=== PATIENT | male | born 1955 | race Caucasian/White ===

== ENCOUNTER 2017-06-04 13:07 | Observation (INO) | payer OTHER ==
--- NOTE | 2017-06-04 13:53 | XRAY ---
Indication: Dyspnea and bloating. CHF. COPD. Comparison: June 12, 2011. PA/lateral chest remains clear with again incidental minimal lingular fibrosis/scarring. No focal infiltrate, consolidation, or large effusion. Heart is not enlarged. Vascularity normal. Bony thorax intact again with degenerative changes. Impression: Stable nonacute chest with chronic features.
[2017-06-04 14:01] LABS: Hematocrit 42.3 % (42-50); Hemoglobin 14.5 gm/dl (12.5-18.0); Mean Cell Volume 95.5 fl (78-100); Mean Corpuscular Hemoglobin 32.7 pg (26-32); Mean Corpuscular Hgb Concent. 34.3 g/dl (32-36); Mean Platelet Volume 9.1 fl (6-9.5); Platelet Count 131 K/mm3 (150-450); Red Blood Count 4.43 M/mm3 (4.1-5.6); Red Cell Distribution Width 12.8 % (11.5-14.0); White Blood Count 5.3 K/mm3 (4.0-10.5)
[2017-06-04] MEDS: PROVENTIL COMMON CANISTER IH SCH ×2 (14:13→18:52)
[2017-06-04 14:27] LABS: ANION GAP 15.1 MEQ/L (5-15); BLOOD UREA NITROGEN 7 mg/dL (9-20); CHLORIDE 95 mEq/L (98-107); Calcium 8.9 mg/dL (8.5-10.1); Carbon Dioxide 25.7 mEq/L (21-32); Creatinine 1 0.67 mg/dl (0.55-1.30); EST GLOMERULAR FILTRATION RATE > 60 ML/MIN; Glucose 112 MG/DL (70-110); NT PRO BNP 1009 pg/ml (0-125); Potassium 3.7 mEq/L (3.5-5.1); SODIUM 132 mEq/L (136-145)
[2017-06-04 14:28] LABS: TROPONIN < 0.017 ng/ml (0.000-0.056)
[2017-06-04] MEDS ORDERED: MEDICATION INTERVENTION MC PRN (16:59)
[2017-06-04] MEDS: Lasix 40 MG/4 ML IV SCH (17:30)
[2017-06-04] MEDS: SOMA 350 MG PO SCH ×2 (17:31→22:16)
[2017-06-04] MEDS: FISH OIL 1,000 MG CAPSULE PO SCH (17:31)
[2017-06-04] MEDS: ENOXAPARIN SODIUM SQ SCH (17:32)
[2017-06-04] MEDS: PLAVIX 75 MG Tablet PO SCH (17:32)
[2017-06-04] MEDS: PATIENT OWN MEDICATION IH SCH ×2 (18:59→22:18)
[2017-06-04] MEDS ORDERED: NON-FORMULARY ITEM (Carvedilol [Coreg] 25 MG) PO SCH (22:00)
[2017-06-04] MEDS ORDERED: xanAX 0.5 MG PO SCH (22:00)
[2017-06-04] MEDS: Glucophage XR 500 MG PO SCH (22:15)
[2017-06-04] MEDS: XANAX 1 MG PO SCH (22:15)
[2017-06-04] MEDS: COREG 12.5 MG PO SCH (22:16)
[2017-06-04] MEDS: Reglan 10 MG PO SCH (22:16)
[2017-06-04] MEDS ORDERED: PROVENTIL COMMON CANISTER IH PRN (23:08)
[2017-06-05] MEDS: SOMA 350 MG PO SCH ×4 (05:43→21:48)
[2017-06-05] MEDS: PROVENTIL COMMON CANISTER IH SCH ×4 (07:23→20:03)
[2017-06-05] MEDS: XANAX 1 MG PO SCH ×2 (08:46→21:49)
[2017-06-05] MEDS: Lasix 40 MG/4 ML IV SCH ×2 (08:46→16:50)
[2017-06-05] MEDS: Zestril 20 MG PO SCH (08:47)
[2017-06-05] MEDS: Reglan 10 MG PO SCH ×2 (08:47→21:48)
[2017-06-05] MEDS: Glucophage XR 500 MG PO SCH ×3 (08:47→21:48)
[2017-06-05] MEDS: NORVASC 5 MG PO SCH (08:47)
[2017-06-05] MEDS: COREG 12.5 MG PO SCH ×2 (08:47→21:48)
[2017-06-05] MEDS ORDERED: NON-FORMULARY ITEM (Lisinopril [Lisinopril] 40 MG) PO SCH (10:00)
[2017-06-05] MEDS ORDERED: NON-FORMULARY ITEM (Omeprazole [Omeprazole] 40 MG) PO SCH ×2 (10:00)
[2017-06-05] MEDS: Protonix 40MG Tablet PO SCH (10:30)
--- NOTE | 2017-06-05 12:57 | PCM.NOTE ---
Date and Time: 06/05/17 1255 Subjective Assessment: doing ok - Review of Systems Constitutional: No Fever, No Chills Eyes: No Symptoms Ears, Nose, & Throat: No Symptoms Respiratory: Orthopnea, No Cough, No Short Of Breath Cardiac: No Chest Pain, No Edema, No Syncope Abdominal/Gastrointestinal: No Abdominal Pain, No Nausea, No Vomiting, No Diarrhea Genitourinary Symptoms: No Dysuria Musculoskeletal: No Back Pain, No Neck Pain Skin: No Rash Neurological: No Dizziness, No Focal Weakness, No Sensory Changes Psychological: No Symptoms Endocrine: No Symptoms Hematologic/Lymphatic: No Symptoms Immunological/Allergic: No Symptoms Objective Exam General Appearance: no apparent distress, alert Neurologic Exam: alert, oriented x 3, cooperative, normal mood/affect, nml cerebellar function, sensation nml, No motor deficits Skin Exam: normal color, warm, dry Eye Exam: PERRL, EOMI, eyes nml inspection Ears, Nose, Throat Exam: normal ENT inspection, pharynx normal, moist mucous membranes Neck Exam: normal inspection, non-tender, supple, full range of motion Respiratory Exam: normal breath sounds, lungs clear, No respiratory distress Cardiovascular Exam: regular rate/rhythm, normal heart sounds Gastrointestinal/Abdomen Exam: soft, No tenderness, No mass Extremity Exam: normal inspection, normal range of motion Back Exam: normal inspection, normal range of motion, No CVA tenderness, No vertebral tenderness Male Genitalia Exam: deferred Rectal Exam: deferred OBJECTIVE DATA Vital Signs: Vital Signs - 24 hr Temp Pulse Resp BP Pulse Ox 06/05/17 11:33 97.9 F 69 18 118/67 93 L 06/05/17 07:34 76 18 94 L 06/05/17 07:08 98.3 F 74 20 132/78 94 L 06/05/17 04:00 98.0 F 69 20 123/78 92 L 06/05/17 00:05 98.3 F 82 24 127/72 95 06/04/17 23:15 78 20 95 06/04/17 21:00 97.8 F 76 18 119/75 88 L 06/04/17 18:59 78 22 95 06/04/17 16:51 97.5 F 75 24 120/68 94 L 06/04/17 15:00 97.5 F 77 24 116/74 87 L 06/04/17 14:24 94 L 06/04/17 14:17 74 22 90 L Oxygen-Last 24 hours O2 Percentage 3 Liters = 32% O2 Percentage 3 Liters = 32% O2 Percentage 3 Liters = 32% O2 Percentage 3 Liters = 32% O2 Percentage 2 Liters = 28% Pain Assessment - Last Documented Pain Intensity 0 Pain Scale Used 0-10 Pain Scale Intake and Output: Intake & Output 06/03/17 06/04/17 06/05/17 06/06/17 11:59 11:59 11:59 11:59 Intake Total 1760 Output Total 5210 Balance -3450 Weight 95.65 kg Lab Results: Accuchecks Date 06/05/17 Date 06/05/17 Date 06/04/17 Time 11:30 Time 07:30 Time 22:00 Accucheck Value: 147 Accucheck Value: 128 Accucheck Value: 110 Lab Results-Last 24 Hours 06/04/17 06/04/17 06/05/17 Range/Units 12:50 12:50 01:00 WBC 5.3 (4.0-10.5) K/mm3 RBC 4.43 (4.1-5.6) M/mm3 Hgb 14.5 (12.5-18.0) gm/dl Hct 42.3 (42-50) % MCV 95.5 (78-100) fl MCH 32.7 H (26-32) pg MCHC 34.3 (32-36) g/dl RDW 12.8 (11.5-14.0) % Plt Count 131 L (150-450) K/mm3 MPV 9.1 (6-9.5) fl Sodium 132 L (136-145) mEq/L Potassium 3.7 (3.5-5.1) mEq/L Chloride 95 L (98-107) mEq/L Carbon Dioxide 25.7 (21-32) mEq/L Anion Gap 15.1 H (5-15) MEQ/L BUN 7 L (9-20) mg/dL Creatinine 0.67 (0.55-1.30) mg/dl Estimated GFR > 60 ML/MIN Glucose 112 H (70-110) MG/DL Hemoglobin A1c 5.9 (4.5-6.2) Calcium 8.9 (8.5-10.1) mg/dL Troponin I < 0.017 (0.000-0.056) ng/ml NT-Pro-B Natriuret Pep 1009 H (0-125) pg/ml Radiology Exams: Radiology Procedures Category Date Time Status CHEST 2 VIEWS (PA AND LAT) Stat Exams 06/04/17 13:17 Completed ECHO W/2D AND DOPPLER [US] Routine Exams 06/05/17 08:00 Taken Multi-Disciplinary Progress Notes: Multi-Disciplinary Progress Notes 06/05/17 02:35 Respiratory Note by Prateek Cazares DUE TO PT NEED FOR O2 ALONG W/ HIS CPAP I DID NOT DO HIS OVERNIGHT PULSE OX STUDY LAST NIGHT. Initialized on 06/05/17 02:35 - END OF NOTE 06/04/17 21:40 Respiratory Note by Prateek Cazares CALLED TO PT RM BY COMPRESSOR STATIONS SUPERINTENDENT PT STATED HE WAS FEELING SOB. WHEN I ARRIVED PT SATS WERE 94% ON 3LPM, HR 78, RR 20 AND BS WERE CLEAR AND DIMINISHED. PT WAS SITTING ON THE SIDE OF THE BED AND BREATHING APPEARED NORMAL. PT STATED THAT HE HAS SLOWLY STARTED HAVING MORE DIFFICULTY BREATHING SINCE THE LAST TIME I HAD SEEN HIM THIS EVENING. PT SHOWED ME THAT HE HAD BEEN COUGHING UP A SMALL AMOUNT OF YELLOW/CLEAR, WATERY, SPUTUM. I PLACED PT HOB AT 30 DEGREES AND PLACED PT OWNED CPAP ON HIM AND HE WAS DE-SATTING LOW 88%. I BLED 3LPM OF O2 IN WITH HIS CPAP AND SATS CAME UP TO 96%. I LEFT PT ON THAT AND HE KNOWS TO CALL FOR RT IF HE CONTINUES TO HAVE TROUBLE. Initialized on 06/04/17 21:40 - END OF NOTE Assessment/Plan (1) Acute diastolic CHF (congestive heart failure), NYHA class 3 Current Visit: Yes Status: Acute Assessment & Plan: Chief Complaint Diagnosis CHF Allergies Allergy/AdvReac Type Severity Reaction Status Date / Time No Known Drug Allergies Allergy Unverified 01/07/12 07:22 Vital Signs (Last 24 hours) Temp Pulse Resp BP Pulse Ox 06/05/17 11:33 97.9 F 69 18 118/67 93 L 06/05/17 07:34 76 18 94 L 06/05/17 07:08 98.3 F 74 20 132/78 94 L 06/05/17 04:00 98.0 F 69 20 123/78 92 L 06/05/17 00:05 98.3 F 82 24 127/72 95 06/04/17 23:15 78 20 95 06/04/17 21:00 97.8 F 76 18 119/75 88 L 06/04/17 18:59 78 22 95 06/04/17 16:51 97.5 F 75 24 120/68 94 L 06/04/17 15:00 97.5 F 77 24 116/74 87 L 06/04/17 14:24 94 L 06/04/17 14:17 74 22 90 L Home Medications Medication Instructions Recorded Confirmed Last Taken Type Alirocumab [Praluent Pen] 150 mg SQ UD 06/04/17 06/04/17 Unknown History Amlodipine Besylate 5 mg 5 mg PO DAILY 06/04/17 06/04/17 06/04/17 History [Norvasc 5 mg] Beclomethasone Dipropionate [Qvar] 80 mcg IH DAILY 06/04/17 06/04/17 06/04/17 History Carvedilol [Coreg] 25 mg PO BID 06/04/17 06/04/17 06/04/17 History Furosemide 40 mg [Lasix 40 40 mg PO DAILY 06/04/17 06/04/17 06/04/17 History MG] Liraglutide [Victoza 2-Maksim] 1.8 mg SQ DAILY 06/04/17 06/04/17 06/04/17 History Lisinopril 40 mg PO DAILY 06/04/17 06/04/17 06/04/17 History Sims-3 Fatty Acids/Fish Oil 1,000 mg PO DAILY 06/04/17 06/04/17 06/03/17 History [Fish Oil 1,000 mg Capsule] Current Medications Generic Name Dose Route Start Last Admin Trade Name Freq PRN Reason Stop Dose Admin Albuterol Sulfate 2 puff 06/04/17 15:00 06/05/17 11:28 Proventil Common Canister IH 07/04/17 14:59 2 puff QIDRT SALEEM Administration Albuterol Sulfate 2 puff 06/04/17 23:08 06/04/17 23:15 Proventil Common Canister IH 07/04/17 23:07 2 puff PRN PRN Administration SHORTNESS OF BREATH Alprazolam 1 mg 06/04/17 22:00 06/05/17 08:46 Xanax 1 Mg PO 07/04/17 21:59 1 mg BID SALEEM Administration Amlodipine Besylate 5 mg 06/05/17 10:00 06/05/17 08:47 Norvasc 5 Mg PO 07/05/17 09:59 5 mg DAILY SALEEM Administration Carisoprodol 350 mg 06/04/17 17:00 06/05/17 05:43 Soma 350 Mg PO 07/04/17 16:59 350 mg QID SALEEM Administration Carvedilol 12.5 mg 06/04/17 22:00 06/05/17 08:47 Coreg 12.5 Mg PO 07/04/17 21:59 12.5 mg BID SALEEM Administration Clopidogrel Bisulfate 75 mg 06/04/17 18:00 06/04/17 17:32 Plavix 75 Mg Tablet PO 07/04/17 17:59 75 mg EVENING MEAL SALEEM Administration Enoxaparin Sodium 40 mg 06/04/17 18:00 06/04/17 17:32 Enoxaparin Sodium SQ 07/04/17 17:59 40 mg Q24H SALEEM Administration Fish Oil 1,000 mg 06/04/17 18:00 06/04/17 17:31 Fish Oil 1,000 Mg Capsule PO 07/04/17 17:59 1,000 mg EVENING MEAL SALEEM Administration Furosemide 40 mg 06/04/17 17:00 06/05/17 08:46 Lasix 40 Mg/4 Ml IV 07/04/17 16:59 40 mg BID DIURETIC SALEEM Administration Lisinopril 40 mg 06/05/17 10:00 06/05/17 08:47 Zestril 20 Mg PO 07/05/17 09:59 40 mg DAILY SALEEM Administration Metformin HCl 500 mg 06/04/17 22:00 06/05/17 08:47 Glucophage Xr 500 Mg PO 07/04/17 21:59 500 mg TID SALEEM Administration Metoclopramide HCl 10 mg 06/04/17 22:00 06/05/17 08:47 Reglan 10 Mg PO 07/04/17 21:59 10 mg BID SALEEM Administration Pantoprazole Sodium 40 mg 06/05/17 10:00 06/05/17 10:30 Protonix 40mg Tablet PO 07/05/17 09:59 40 mg DAILY SALEEM Administration Patient Own Med : 0 each 06/04/17 19:00 06/04/17 22:18 Qvar IH 07/04/17 18:59 2 each HS SALEEM Administration Discontinued Medications Generic Name Dose Route Start Last Admin Trade Name Shlomo PRN Reason Stop Dose Admin Non-Formulary Medication 40 mg 06/05/17 10:00 Omeprazole [Omeprazole] PO 07/05/17 09:59 DAILY SALEEM Intake & Output (Last 24 hours) 06/03/17 06/04/17 06/05/17 06/06/17 11:59 11:59 11:59 11:59 Intake Total 1760 360 Output Total 5210 550 Balance -3450 -190 Weight 95.65 kg Laboratory Results (Last 24 hours) 06/05/17 06/04/17 06/04/17 01:00 12:50 12:50 WBC 5.3 RBC 4.43 Hgb 14.5 Hct 42.3 MCV 95.5 MCH 32.7 H MCHC 34.3 RDW 12.8 Plt Count 131 L MPV 9.1 Sodium 132 L Potassium 3.7 Chloride 95 L Carbon Dioxide 25.7 Anion Gap 15.1 H BUN 7 L Creatinine 0.67 Estimated GFR > 60 Glucose 112 H Hemoglobin A1c 5.9 Calcium 8.9 Troponin I < 0.017 NT-Pro-B Natriuret Pep 1009 H Orders (Last 24 hours) Category Date Time Status Up Ad Flores TOLERATED Activity 06/04/17 13:15 Active ACCUCHECK [Accucheck] ACHS Care 06/04/17 19:06 Active Admission/Status Order ROUTINE Care 06/04/17 13:07 Inactive Admission/Status Order ROUTINE Care 06/04/17 13:15 Active Code Status Order ROUTINE Care 06/04/17 13:15 Active IV Care Q6H Care 06/04/17 13:15 Active IV Care Q6H Care 06/04/17 16:09 Active Implement CHF Pathway ROUTINE Care 06/04/17 13:15 Active Implement CHF Pathway ROUTINE Care 06/04/17 16:09 Active Intake and Output Q12H Care 06/04/17 13:15 Active Saline Lock ROUTINE Care 06/04/17 13:15 Active Saline Lock ROUTINE Care 06/04/17 16:09 Active Telemetry CONTINUOUS Care 06/04/17 13:16 Active Telemetry CONTINUOUS Care 06/04/17 16:11 Active Vital Signs Q4H Care 06/04/17 13:15 Active Weight,Daily 0600 Care 06/04/17 13:15 Active Weight,Daily 0600 Care 06/04/17 16:09 Completed Label Folder/Discharge Plan Cons 06/04/17 15:21 Active Low Sodium Diet 06/04/17 Dinner Active Nutritional Admission Screen once Diet 06/04/17 16:25 Active Nutritional Consult Diet 06/04/17 13:15 Active Nutritional Consult Diet 06/04/17 16:09 Active CHEST 2 VIEWS (PA AND LAT) Stat Exams 06/04/17 13:17 Completed ECHO W/2D AND DOPPLER [US] Routine Exams 06/05/17 08:00 Taken BMP Stat Lab 06/04/17 12:50 Completed CBC Stat Lab 06/04/17 12:50 Completed HEMOGLOBIN A1C Routine Lab 06/05/17 01:00 Completed NT PRO BNP Stat Lab 06/04/17 12:50 Completed TROPONIN Stat Lab 06/04/17 12:50 Completed Albuterol Common Canister [Proventil Common Canister Med 06/04/17 23:08 Active ] 2 puff IH PRN PRN Albuterol Common Canister [Proventil Common Canister Med 06/04/17 15:00 Active ] 2 puff IH QIDRT Alprazolam 1 mg [Xanax 1 mg] Med 06/04/17 22:00 Active 1 mg PO BID Amlodipine Besylate 5 mg [Norvasc 5 mg] Med 06/05/17 10:00 Active 5 mg PO DAILY Carisoprodol 350 mg [Soma 350 mg] Med 06/04/17 17:00 Active 350 mg PO QID Carvedilol 12.5 mg [Coreg 12.5 mg] Med 06/04/17 22:00 Active 12.5 mg PO BID Clopidogrel Bisulfate 75 mg [PLAVIX 75 MG Tablet] Med 06/04/17 18:00 Active 75 mg PO EVENING MEAL Enoxaparin Sodium [Enoxaparin Sodium] Med 06/04/17 18:00 Active 40 mg SQ Q24H Furosemide 40 mg/4 ml [Lasix 40 MG/4 ML] Med 06/04/17 17:00 Active 40 mg IV BID DIURETIC Lisinopril 20 mg [Zestril 20 MG] Med 06/05/17 10:00 Active 40 mg PO DAILY Medication Intervention Med 06/04/17 16:59 Active 0 each MC PRN PRN Metformin HCl Xr 500 mg [Glucophage XR 500 MG] Med 06/04/17 22:00 Active 500 mg PO TID Metoclopramide HCl 10 mg [Reglan 10 MG] Med 06/04/17 22:00 Active 10 mg PO BID Sims-3 Fatty Acids/Fish Oil [Fish Oil 1,000 mg Med 06/04/17 18:00 Active Capsule] 1,000 mg PO EVENING MEAL Omeprazole [Omeprazole] Med 06/05/17 10:00 Discontinued 40 mg PO DAILY PANTOPRAZOLE 40 mg Tablet [Protonix 40MG Tablet] Med 06/05/17 10:00 Active 40 mg PO DAILY Patient Own Med [Patient Own Medication] Med 06/04/17 19:00 Active 0 each IH HS BiPap/CPAP Assessment ROUTINE RT 06/04/17 21:00 Active EKG STAT RT 06/04/17 13:15 Completed Oxygen NASAL CANNULA 2 lpm RT 06/04/17 13:15 Active Pulse Oximetry OVERNIGHT RT 06/04/17 16:09 Active RT Screen per Nursing Assess ONCE RT 06/04/17 16:25 Completed Respiratory MDI HS RT 06/04/17 19:00 Active Respiratory MDI QID RT 06/04/17 15:00 Active Respiratory MDI UD RT 06/04/17 23:08 Active Patient Care Notes (Last 24 hours) 06/05/17 02:35 Respiratory Note by Prateek Cazares DUE TO PT NEED FOR O2 ALONG W/ HIS CPAP I DID NOT DO HIS OVERNIGHT PULSE OX STUDY LAST NIGHT. Initialized on 06/05/17 02:35 - END OF NOTE 06/04/17 21:40 Respiratory Note by Prateek Cazares CALLED TO PT RM BY COMPRESSOR STATIONS SUPERINTENDENT PT STATED HE WAS FEELING SOB. WHEN I ARRIVED PT SATS WERE 94% ON 3LPM, HR 78, RR 20 AND BS WERE CLEAR AND DIMINISHED. PT WAS SITTING ON THE SIDE OF THE BED AND BREATHING APPEARED NORMAL. PT STATED THAT HE HAS SLOWLY STARTED HAVING MORE DIFFICULTY BREATHING SINCE THE LAST TIME I HAD SEEN HIM THIS EVENING. PT SHOWED ME THAT HE HAD BEEN COUGHING UP A SMALL AMOUNT OF YELLOW/CLEAR, WATERY, SPUTUM. I PLACED PT HOB AT 30 DEGREES AND PLACED PT OWNED CPAP ON HIM AND HE WAS DE-SATTING LOW 88%. I BLED 3LPM OF O2 IN WITH HIS CPAP AND SATS CAME UP TO 96%. I LEFT PT ON THAT AND HE KNOWS TO CALL FOR RT IF HE CONTINUES TO HAVE TROUBLE. Initialized on 06/04/17 21:40 - END OF NOTE Code(s): I50.31 - ACUTE DIASTOLIC (CONGESTIVE) HEART FAILURE (2) Heart failure Current Visit: Yes Status: Acute Qualifiers: Heart failure type: combined Heart failure chronicity: acute on chronic Qualified Code(s): I50.43 - Acute on chronic combined systolic (congestive) and diastolic (congestive) heart failure Code(s): I50.9 - HEART FAILURE, UNSPECIFIED
[2017-06-05] MEDS: ENOXAPARIN SODIUM SQ SCH (18:22)
[2017-06-05] MEDS: PLAVIX 75 MG Tablet PO SCH (18:22)
[2017-06-05] MEDS: FISH OIL 1,000 MG CAPSULE PO SCH (18:22)
[2017-06-05] MEDS: PATIENT OWN MEDICATION IH SCH (21:49)
[2017-06-06 06:35] LABS: ALBUMIN 3.8 g/dL (3.4-5.0); ALKALINE PHOSPHATASE 75 U/L (46-116); ANION GAP 13.3 MEQ/L (5-15); BLOOD UREA NITROGEN 7 mg/dL (9-20); CHLORIDE 98 mEq/L (98-107); Calcium 9.7 mg/dL (8.5-10.1); Carbon Dioxide 28.3 mEq/L (21-32); Creatinine 1 0.76 mg/dl (0.55-1.30); EST GLOMERULAR FILTRATION RATE > 60 ML/MIN; Glucose 117 MG/DL (70-110); PHOSPHOROUS 4.7 mg/dL (2.6-4.7); SGOT/AST 16 U/L (15-37); SGPT/ALT 25 U/L (12-78); SODIUM 136 mEq/L (136-145); Total Protein 7.9 gm/dL (6.4-8.2)
[2017-06-06] MEDS: PROVENTIL COMMON CANISTER IH SCH ×2 (07:27→11:06)
[2017-06-06] MEDS: Zestril 20 MG PO SCH (08:41)
[2017-06-06] MEDS: Reglan 10 MG PO SCH (08:41)
[2017-06-06] MEDS: COREG 12.5 MG PO SCH (08:41)
[2017-06-06] MEDS: SOMA 350 MG PO SCH ×2 (08:42→13:00)
[2017-06-06] MEDS: XANAX 1 MG PO SCH (08:42)
[2017-06-06] MEDS: NORVASC 5 MG PO SCH (08:42)
[2017-06-06] MEDS: Protonix 40MG Tablet PO SCH (08:42)
[2017-06-06] MEDS: Lasix 40 MG/4 ML IV SCH (08:43)
[2017-06-06] MEDS: Glucophage XR 500 MG PO SCH (08:43)
--- NOTE | 2017-06-06 09:57 | PCM.DS ---
Discharge Summary Date of Admission: 06/04/17 13:07 Admitting Physician: HODA HAIRSTON Consults: Consults on Case 06/04/17 13:15 Nutritional Consult 06/04/17 16:09 Nutritional Consult Primary Care Provider: HODA HAIRSTON Allergies Allergies No Known Drug Allergies Allergy (Unverified 01/07/12 07:22) Hospital Summary - Hospital Course Hospital Course: Chief Complaint Diagnosis CHF Allergies Allergy/AdvReac Type Severity Reaction Status Date / Time No Known Drug Allergies Allergy Unverified 01/07/12 07:22 Vital Signs (Last 24 hours) Temp Pulse Resp BP Pulse Ox 06/06/17 07:34 81 20 97 06/06/17 07:29 97.8 F 79 20 159/83 96 06/06/17 04:00 97.8 F 77 20 150/84 97 06/05/17 23:44 97.6 F 70 20 111/64 94 L 06/05/17 20:24 97.7 F 71 22 146/77 95 06/05/17 19:10 72 18 96 06/05/17 16:10 98 F 77 20 134/76 94 L 06/05/17 11:33 97.9 F 69 18 118/67 93 L Home Medications Medication Instructions Recorded Confirmed Last Taken Type Alirocumab [Praluent Pen] 150 mg SQ UD 06/04/17 06/04/17 Unknown History Amlodipine Besylate 5 mg 5 mg PO DAILY 06/04/17 06/04/17 06/04/17 History [Norvasc 5 mg] Beclomethasone Dipropionate [Qvar] 80 mcg IH DAILY 06/04/17 06/04/17 06/04/17 History Carvedilol [Coreg] 25 mg PO BID 06/04/17 06/04/17 06/04/17 History Furosemide 40 mg [Lasix 40 40 mg PO DAILY 06/04/17 06/04/17 06/04/17 History MG] Liraglutide [Victoza 2-Maksim] 1.8 mg SQ DAILY 06/04/17 06/04/17 06/04/17 History Lisinopril 40 mg PO DAILY 06/04/17 06/04/17 06/04/17 History [place]-3 Fatty Acids/Fish Oil 1,000 mg PO DAILY 06/04/17 06/04/17 06/03/17 History [Fish Oil 1,000 mg Capsule] Current Medications Generic Name Dose Route Start Last Admin Trade Name Freq PRN Reason Stop Dose Admin Albuterol Sulfate 2 puff 06/04/17 15:00 06/06/17 07:27 Proventil Common Canister IH 07/04/17 14:59 2 puff QIDRT SALEEM Administration Albuterol Sulfate 2 puff 06/04/17 23:08 06/04/17 23:15 Proventil Common Canister IH 07/04/17 23:07 2 puff PRN PRN Administration SHORTNESS OF BREATH Alprazolam 1 mg 06/04/17 22:00 06/06/17 08:42 Xanax 1 Mg PO 07/04/17 21:59 1 mg BID SALEEM Administration Amlodipine Besylate 5 mg 06/05/17 10:00 06/06/17 08:42 Norvasc 5 Mg PO 07/05/17 09:59 5 mg DAILY SALEEM Administration Carisoprodol 350 mg 06/04/17 17:00 06/06/17 08:42 Soma 350 Mg PO 07/04/17 16:59 350 mg QID S[place] Administration Carvedilol 12.5 mg 06/04/17 22:00 06/06/17 08:41 Coreg 12.5 Mg PO 07/04/17 21:59 12.5 mg BID SALEEM Administration Clopidogrel Bisulfate 75 mg 06/04/17 18:00 06/05/17 18:22 Plavix 75 Mg Tablet PO 07/04/17 17:59 75 mg EVENING MEAL SALEEM Administration Enoxaparin Sodium 40 mg 06/04/17 18:00 06/05/17 18:22 Enoxaparin Sodium SQ 07/04/17 17:59 40 mg Q24H SALEEM Administration Fish Oil 1,000 mg 06/04/17 18:00 06/05/17 18:22 Fish Oil 1,000 Mg Capsule PO 07/04/17 17:59 1,000 mg EVENING MEAL SALEEM Administration Furosemide 40 mg 06/04/17 17:00 06/06/17 08:43 Lasix 40 Mg/4 Ml IV 07/04/17 16:59 40 mg BID DIURETIC [place] Administration Lisinopril 40 mg 06/05/17 10:00 06/06/17 08:41 Zestril 20 Mg PO 07/05/17 09:59 40 mg DAILY SALEEM Administration Metformin HCl 500 mg 06/04/17 22:00 06/06/17 08:43 Glucophage Xr 500 Mg PO 07/04/17 21:59 500 mg TID SALEEM Administration Metoclopramide HCl 10 mg 06/04/17 22:00 06/06/17 08:41 Reglan 10 Mg PO 07/04/17 21:59 10 mg BID SALEEM Administration Pantoprazole Sodium 40 mg 06/05/17 10:00 06/06/17 08:42 Protonix 40mg Tablet PO 07/05/17 09:59 40 mg DAILY SALEEM Administration Patient Own Med : 0 each 06/04/17 19:00 06/05/17 21:49 Qvar IH 07/04/17 18:59 2 each HS SALEEM Administration Victoza Pen 1.8 each 06/06/17 10:00 SQ 07/06/17 09:59 DAILY SALEEM Discontinued Medications Generic Name Dose Route Start Last Admin Trade Name Freq PRN Reason Stop Dose Admin Non-Formulary Medication 40 mg 06/05/17 10:00 Omeprazole [Omeprazole] PO 07/05/17 09:59 DAILY SALEEM Intake & Output (Last 24 hours) 06/03/17 06/04/17 06/05/17 06/06/17 11:59 11:59 11:59 11:59 Intake Total 1760 2100 Output Total 5210 5850 Balance -3450 -3750 Weight 95.65 kg 92.1 kg Laboratory Results (Last 24 hours) 06/06/17 05:06 Sodium 136 Potassium 4.0 Chloride 98 Carbon Dioxide 28.3 Anion Gap 13.3 BUN 7 L Creatinine 0.76 Estimated GFR > 60 Glucose 117 H Calcium 9.7 Phosphorus 4.7 Total Bilirubin 0.70 AST 16 ALT 25 Alkaline Phosphatase 75 Serum Total Protein 7.9 Albumin 3.8 Orders (Last 24 hours) Category Date Time Status COMPREHENSIVE/RENAL Routine Lab 06/06/17 05:06 Completed Amlodipine Besylate 5 mg [Norvasc 5 mg] Med 06/05/17 10:00 Active 5 mg PO DAILY Lisinopril 20 mg [Zestril 20 MG] Med 06/05/17 10:00 Active 40 mg PO DAILY Omeprazole [Omeprazole] Med 06/05/17 10:00 Discontinued 40 mg PO DAILY PANTOPRAZOLE 40 mg Tablet [Protonix 40MG Tablet] Med 06/05/17 10:00 Active 40 mg PO DAILY Patient Own Med [Patient Own Medication] Med 06/06/17 10:00 Active 1.8 each SQ DAILY Qualify for Home Oxygen TODAY RT 06/06/17 09:01 Active Patient Care Notes (Last 24 hours) 06/06/17 09:18 Respiratory Note by Maribell Hinds ROOM AIR RESTING SPO2 85%. PLACED ON N/C 3LPM SPO2 INC TO 96%. Initialized on 06/06/17 09:18 - END OF NOTE - Vitals & Intake/Output Vital Signs: Vital Signs Temperature 97.8 F 06/06/17 07:29 Pulse Rate 81 06/06/17 07:34 Respiratory Rate 20 06/06/17 07:34 Blood Pressure 159/83 06/06/17 07:29 O2 Sat by Pulse Oximetry 97 06/06/17 07:34 Oxygen-Last Documented O2 Percentage 2 Liters = 28% Intake & Output: Intake & Output 06/03/17 06/04/17 06/05/17 06/06/17 11:59 11:59 11:59 11:59 Intake Total 1760 2100 Output Total 5210 5850 Balance -3450 -3750 Weight 95.65 kg 92.1 kg - Lab Result Diagrams: 06/04/17 12:50 06/06/17 05:06 Lab Results-Last 24 Hrs: Accuchecks Date 06/05/17 Date 06/05/17 Time 16:30 Time 11:30 Accucheck Value: 111 Accucheck Value: 132 Accucheck Value: 147 Lab Results-Last 24 Hours 06/06/17 Range/Units 05:06 Sodium 136 (136-145) mEq/L Potassium 4.0 (3.5-5.1) mEq/L Chloride 98 (98-107) mEq/L Carbon Dioxide 28.3 (21-32) mEq/L Anion Gap 13.3 (5-15) MEQ/L BUN 7 L (9-20) mg/dL Creatinine 0.76 (0.55-1.30) mg/dl Estimated GFR > 60 ML/MIN Glucose 117 H (70-110) MG/DL Calcium 9.7 (8.5-10.1) mg/dL Phosphorus 4.7 (2.6-4.7) mg/dL Total Bilirubin 0.70 (0.2-1.0) mg/dL AST 16 (15-37) U/L ALT 25 (12-78) U/L Alkaline Phosphatase 75 (46-116) U/L Serum Total Protein 7.9 (6.4-8.2) gm/dL Albumin 3.8 (3.4-5.0) g/dL Micro Results-Entire Visit: Accuchecks Date 06/05/17 Date 06/05/17 Time 16:30 Time 11:30 Accucheck Value: 111 Accucheck Value: 132 Accucheck Value: 147 - Radiology Exams Ordered Rad Exams-Entire Visit: Radiology Procedures Category Date Time Status CHEST 2 VIEWS (PA AND LAT) Stat Exams 06/04/17 13:17 Completed ECHO W/2D AND DOPPLER [US] Routine Exams 06/05/17 08:00 Taken - Procedures and Test Procedures and Tests throughout Hospitalization: Therapy Orders & Screens 06/04/17 13:15 EKG STAT Comment: Diagnosis: CHF Oxygen NASAL CANNULA 2 lpm Comment: Diagnosis: CHF 06/04/17 15:00 Respiratory MDI QID Comment: ALBUTEROL 2PUFFS QID Diagnosis: CHF 06/04/17 16:25 RT Screen per Nursing Assess ONCE Comment: Protocol Order Physician Instructions: Greater than 3 points order RT Admission Screen Reason For Exam: Triggered on Admission Diagnosis: CHF Diagnosis: CHF Pneumonia: No Home O2: No Asthma: No CHF: Yes Home CPAP/BIPAP: Yes Home Nebs/MDI: Yes Total Points: 13 06/04/17 19:00 Respiratory MDI HS Comment: QVAR HS Diagnosis: CHF 06/04/17 21:00 BiPap/CPAP Assessment ROUTINE Comment: HOME CPAP UNIT PER HOME SETTINGS Diagnosis: CHF 06/04/17 23:08 Respiratory MDI UD Comment: ALB MDI PRN Diagnosis: CHF 06/06/17 09:01 Qualify for Home Oxygen TODAY Comment: Diagnosis: CHF Discharge Exam General Appearance: no apparent distress, alert Neurologic Exam: alert, oriented x 3, cooperative, normal mood/affect, nml cerebellar function, sensation nml, No motor deficits Skin Exam: normal color, warm, dry Eye Exam: PERRL, EOMI, eyes nml inspection Ears, Nose, Throat Exam: normal ENT inspection, pharynx normal, moist mucous membranes Neck Exam: normal inspection, non-tender, supple, full range of motion Respiratory Exam: normal breath sounds, lungs clear, No respiratory distress Cardiovascular Exam: regular rate/rhythm, normal heart sounds Gastrointestinal/Abdomen Exam: soft, No tenderness, No mass Extremity Exam: normal inspection, normal range of motion Back Exam: normal inspection, normal range of motion, No CVA tenderness, No vertebral tenderness Male Genitalia Exam: deferred Rectal Exam: deferred Final Diagnosis/Problem List - Final Discharge Diagnosis/Problem (1) Acute diastolic CHF (congestive heart failure), NYHA class 3 Current Visit: Yes Status: Acute Priority: High Assessment & Plan: Chief Complaint Diagnosis CHF Allergies Allergy/AdvReac Type Severity Reaction Status Date / Time No Known Drug Allergies Allergy Unverified 01/07/12 07:22 Vital Signs (Last 24 hours) Temp Pulse Resp BP Pulse Ox 06/06/17 07:34 81 20 97 06/06/17 07:29 97.8 F 79 20 159/83 96 06/06/17 04:00 97.8 F 77 20 150/84 97 06/05/17 23:44 97.6 F 70 20 111/64 94 L 06/05/17 20:24 97.7 F 71 22 146/77 95 06/05/17 19:10 72 18 96 06/05/17 16:10 98 F 77 20 134/76 94 L 06/05/17 11:33 97.9 F 69 18 118/67 93 L Home Medications Medication Instructions Recorded Confirmed Last Taken Type Alirocumab [Praluent Pen] 150 mg SQ UD 06/04/17 06/04/17 Unknown History Amlodipine Besylate 5 mg 5 mg PO DAILY 06/04/17 06/04/17 06/04/17 History [Norvasc 5 mg] Beclomethasone Dipropionate [Qvar] 80 mcg IH DAILY 06/04/17 06/04/17 06/04/17 History Carvedilol [Coreg] 25 mg PO BID 06/04/17 06/04/17 06/04/17 History Furosemide 40 mg [Lasix 40 40 mg PO DAILY 06/04/17 06/04/17 06/04/17 History MG] Liraglutide [Victoza 2-Maksim] 1.8 mg SQ DAILY 06/04/17 06/04/17 06/04/17 History Lisinopril 40 mg PO DAILY 06/04/17 06/04/17 06/04/17 History [place]-3 Fatty Acids/Fish Oil 1,000 mg PO DAILY 06/04/17 06/04/17 06/03/17 History [Fish Oil 1,000 mg Capsule] Current Medications Generic Name Dose Route Start Last Admin Trade Name Freq PRN Reason Stop Dose Admin Albuterol Sulfate 2 puff 06/04/17 15:00 06/06/17 07:27 Proventil Common Canister IH 07/04/17 14:59 2 puff QIDRT S[place] Administration Albuterol Sulfate 2 puff 06/04/17 23:08 06/04/17 23:15 Proventil Common Canister IH 07/04/17 23:07 2 puff PRN PRN Administration SHORTNESS OF BREATH Alprazolam 1 mg 06/04/17 22:00 06/06/17 08:42 Xanax 1 Mg PO 07/04/17 21:59 1 mg BID [place] Administration Amlodipine Besylate 5 mg 06/05/17 10:00 06/06/17 08:42 Norvasc 5 Mg PO 07/05/17 09:59 5 mg DAILY S[place] Administration Carisoprodol 350 mg 06/04/17 17:00 06/06/17 08:42 Soma 350 Mg PO 07/04/17 16:59 350 mg QID S[place] Administration Carvedilol 12.5 mg 06/04/17 22:00 06/06/17 08:41 Coreg 12.5 Mg PO 07/04/17 21:59 12.5 mg BID S[place] Administration Clopidogrel Bisulfate 75 mg 06/04/17 18:00 06/05/17 18:22 Plavix 75 Mg Tablet PO 07/04/17 17:59 75 mg EVENING MEAL S[place] Administration Enoxaparin Sodium 40 mg 06/04/17 18:00 06/05/17 18:22 Enoxaparin Sodium SQ 07/04/17 17:59 40 mg Q24H S[place] Administration Fish Oil 1,000 mg 06/04/17 18:00 06/05/17 18:22 Fish Oil 1,000 Mg Capsule PO 07/04/17 17:59 1,000 mg EVENING MEAL S[place] Administration Furosemide 40 mg 06/04/17 17:00 06/06/17 08:43 Lasix 40 Mg/4 Ml IV 07/04/17 16:59 40 mg BID DIURETIC [place] Administration Lisinopril 40 mg 06/05/17 10:00 06/06/17 08:41 Zestril 20 Mg PO 07/05/17 09:59 40 mg DAILY S[place] Administration Metformin HCl 500 mg 06/04/17 22:00 06/06/17 08:43 Glucophage Xr 500 Mg PO 07/04/17 21:59 500 mg TID S[place] Administration Metoclopramide HCl 10 mg 06/04/17 22:00 06/06/17 08:41 Reglan 10 Mg PO 07/04/17 21:59 10 mg BID S[place] Administration Pantoprazole Sodium 40 mg 06/05/17 10:00 06/06/17 08:42 Protonix 40mg Tablet PO 07/05/17 09:59 40 mg DAILY S[place]EM Administration Patient Own Med : 0 each 06/04/17 19:00 06/05/17 21:49 Qvar IH 07/04/17 18:59 2 each HS SALEEM Administration Victoza Pen 1.8 each 06/06/17 10:00 SQ 07/06/17 09:59 DAILY SALEEM Discontinued Medications Generic Name Dose Route Start Last Admin Trade Name Freq PRN Reason Stop Dose Admin Non-Formulary Medication 40 mg 06/05/17 10:00 Omeprazole [Omeprazole] PO 07/05/17 09:59 DAILY SALEEM Intake & Output (Last 24 hours) 06/03/17 06/04/17 06/05/17 06/06/17 11:59 11:59 11:59 11:59 Intake Total 1760 2100 Output Total 5210 5850 Balance -3450 -3750 Weight 95.65 kg 92.1 kg Laboratory Results (Last 24 hours) 06/06/17 05:06 Sodium 136 Potassium 4.0 Chloride 98 Carbon Dioxide 28.3 Anion Gap 13.3 BUN 7 L Creatinine 0.76 Estimated GFR > 60 Glucose 117 H Calcium 9.7 Phosphorus 4.7 Total Bilirubin 0.70 AST 16 ALT 25 Alkaline Phosphatase 75 Serum Total Protein 7.9 Albumin 3.8 Orders (Last 24 hours) Category Date Time Status COMPREHENSIVE/RENAL Routine Lab 06/06/17 05:06 Completed Amlodipine Besylate 5 mg [Norvasc 5 mg] Med 06/05/17 10:00 Active 5 mg PO DAILY Lisinopril 20 mg [Zestril 20 MG] Med 06/05/17 10:00 Active 40 mg PO DAILY Omeprazole [Omeprazole] Med 06/05/17 10:00 Discontinued 40 mg PO DAILY PANTOPRAZOLE 40 mg Tablet [Protonix 40MG Tablet] Med 06/05/17 10:00 Active 40 mg PO DAILY Patient Own Med [Patient Own Medication] Med 06/06/17 10:00 Active 1.8 each SQ DAILY Qualify for Home Oxygen TODAY RT 06/06/17 09:01 Active Patient Care Notes (Last 24 hours) 06/06/17 09:18 Respiratory Note by Maribell Hinds ROOM AIR RESTING SPO2 85%. PLACED ON N/C 3LPM SPO2 INC TO 96%. Initialized on 06/06/17 09:18 - END OF NOTE (2) CAD (coronary artery disease) of artery bypass graft Current Visit: Yes Status: Acute (3) COPD (chronic obstructive pulmonary disease) Current Visit: Yes Status: Acute Priority: High - Discharge Discharge Date: 06/06/17 Disposition: Home, Self-Care Condition: Stable Prescriptions: No Action Carisoprodol 350 mg [Soma 350 mg] 350 mg PO QID Clopidogrel Bisulfate 75 mg [PLAVIX 75 MG Tablet] 75 mg PO DAILY Alprazolam 0.5 mg [xanAX 0.5 MG] 1 mg PO BID Omeprazole 40 mg PO DAILY Metoclopramide HCl 10 mg [Reglan 10 MG] 10 mg PO BID Metformin HCl [Metformin HCl ER] 500 mg PO TID Carvedilol [Coreg] 25 mg PO BID Furosemide 40 mg [Lasix 40 MG] 40 mg PO DAILY Amlodipine Besylate 5 mg [Norvasc 5 mg] 5 mg PO DAILY Lisinopril 40 mg PO DAILY Beclomethasone Dipropionate [Qvar] 80 mcg IH DAILY Alirocumab [Praluent Pen] 150 mg SQ UD [place]-3 Fatty Acids/Fish Oil [Fish Oil 1,000 mg Capsule] 1,000 mg PO DAILY Liraglutide [Victoza 2-Maksim] 1.8 mg SQ DAILY Follow up with: HODA HAIRSTON MD [Primary Care Provider] - 1 Week Forms: Patient Portal Information
[2017-06-06] MEDS ORDERED: PATIENT OWN MEDICATION SQ SCH (10:00)
[2017-06-06 11:13] VITALS: O2SAT 96
[2017-06-06 11:24] VITALS: BP 134/73; PULSE 72
== END 2017-06-06 13:10 | disposition home or self-care (01) ==
LOC: MED SURG 13:07
PROVIDERS: ADMIT General Practice; ATTEND General Practice
DX: I50.43 Acute on chronic combined systolic (congestive) and diastolic (congestive) heart failure (principal); I25.810 Atherosclerosis of coronary artery bypass graft(s) without angina pectoris; J44.9 Chronic obstructive pulmonary disease, unspecified; E11.9 Type 2 diabetes mellitus without complications; Z79.4 Long term (current) use of insulin; Z79.899 Other long term (current) drug therapy
CPT/HCPCS: 36415; 71046; 80048; 80053; 82962; 83036; 83880; 84100; 84484; 85027; 93005; 93268; 93306; 94640; 94760; G0378; J1650; J1940; A9270-GY

== ENCOUNTER 2017-10-25 18:46 | Observation (INO) | payer BC, MEDICARE, OTHER ==
[2017-10-25] MEDS ORDERED: DUONEB 0.5-3 MG/3 ml Neb IH ONE ×2 (19:19→19:33)
[2017-10-25] MEDS ORDERED: BUMEX 1 MG IV ONE (19:22)
--- NOTE | 2017-10-25 19:32 | ERPHSYRPT ---
- History of Present Illness Time Seen by Provider: 10/25/17 19:13 Source: patient Exam Limitations: clinical condition Patient Subjective Stated Complaint: SHORTNESS OF BREATH FOR TWO DAYS. HX CHF AND CABG TIMES TWO. ALSO HAVING ABD BLOATING AND WEIGHT GAIN Triage Nursing Assessment: AMBULATED TO ROOM PER SELF. SKIN W/D, COLOR NORMAL, RESP SLIGHTLY LABORED. PLACED ON OXYGEN AT 3L N/C. CRACKLES HEARD IN BASES. ABD DISTENDED, FIRM Physician History: PATIENT WITH A HISTORY OF CHF, COPD, CORONARY ARTERY DISEASE, MYOCARDIAL INFARCTION, CORONARY ARTERY BYPASS X 2 PROCEDURES COMPLAINS OF DYSPNEA AT REST, EXERTIONAL DYSPNEA, WEIGHT GAIN X 2-3 DAYS. DENIES CHEST PAIN, FEVER OR COUGH. Timing/Duration: day(s) Activities at Onset: activity Severity of Dyspnea-Max: severe Severity of Dyspnea-Current: severe Possible Cause: occasional episodes Modifying Factors: Improves With: rest Associated Symptoms: leg swelling International travel in last 2 weeks: No Allergies/Adverse Reactions: Zbouqwx-Luj-Ime Reductase Inhibitor Adverse Reaction (Verified 10/25/17 19:08) Home Medications: Alprazolam 0.5 mg [xanAX 0.5 MG] 1 mg PO BID 01/07/12 [History] Carisoprodol 350 mg [Soma 350 mg] 350 mg PO QID 01/07/12 [History] Clopidogrel Bisulfate 75 mg [PLAVIX 75 MG Tablet] 75 mg PO DAILY 01/07/12 [History] Metformin HCl [Metformin HCl ER] 500 mg PO TID 01/07/12 [History] Metoclopramide HCl 10 mg [Reglan 10 MG] 10 mg PO BID 01/07/12 [History] Omeprazole 40 mg PO DAILY 01/07/12 [History] Alirocumab [Praluent Pen] 150 mg SQ UD 06/04/17 [History] Amlodipine Besylate 5 mg [Norvasc 5 mg] 5 mg PO DAILY 06/04/17 [History] Carvedilol [Coreg] 25 mg PO BID 06/04/17 [History] Liraglutide [Victoza 2-Maksim] 1.8 mg SQ DAILY 06/04/17 [History] Lisinopril 40 mg PO DAILY 06/04/17 [History] [place]-3 Fatty Acids/Fish Oil [Fish Oil 1,000 mg Capsule] 1,000 mg PO DAILY 06/04/17 [History] Aspirin [[place] Aspirin] 81 mg PO DAILY 10/25/17 [History] Bumetanide 1 mg [Bumex 1 mg] 1 mg PO DAILY 10/25/17 [History] Pitavastatin Calcium [Livalo] 4 mg PO DAILY 10/25/17 [History] Tamsulosin HCl 0.4 mg [Flomax 0.4 MG] 0.4 mg PO DAILY 10/25/17 [History] Hx Tetanus, Diphtheria Vaccination/Date Given: Yes Hx Influenza Vaccination/Date Given: Yes (2016) Hx Pneumococcal Vaccination/Date Given: No - Review of Systems Constitutional: No Fever, No Chills Eyes: No Symptoms Ears, Nose, & Throat: No Symptoms Respiratory: Dyspnea, Dyspnea on Exertion (SHEEHAN), No Cough Cardiac: No Chest Pain, No Edema, No Syncope Abdominal/Gastrointestinal: No Symptoms, No Abdominal Pain, No Nausea, No Vomiting, No Diarrhea Genitourinary Symptoms: No Symptoms, No Dysuria Musculoskeletal: Other (SWELLING IN LEGS), No Back Pain, No Neck Pain Skin: No Rash Neurological: No Dizziness, No Focal Weakness, No Sensory Changes Psychological: No Symptoms Endocrine: No Symptoms All Other Systems: Reviewed and Negative - Past Medical History Pertinent Past Medical History: Yes Neurological History: No Pertinent History ENT History: Cataracts Cardiac History: Coronary Artery Disease, High Cholesterol, Hypertension, Myocardial Infarction ([place]) Respiratory History: CHF, COPD, Sleep Apnea Endocrine Medical History: Diabetes Type II Musculoskeletal History: Arthritis, Degenerative Disk Disease, Other GI Medical History: Diverticulosis, GERD, Hernia History: No Pertinent History Psycho-Social History: Anxiety Male Reproductive Disorders: No Pertinent History Other Medical History: pt states fistula in left arm is for cholesterol, had placed in [place] - Past Surgical History Past Surgical History: Yes Neuro Surgical History: No Pertinent History Cardiac: CABG, Cardiac Catheterization, Cardiac Stent Respiratory: No Pertinent History Genitourinary: No Pertinent History Musculoskeletal: Orthopedic Surgery Male Surgical History: No Pertinent History Other Surgical History: lower back fx, bulging disk - Social History Smoking Status: Former smoker Exposure to second hand smoke: No Drug Use: none Patient Lives Alone: No - Nursing Vital Signs Nursing Vital Signs: Initial Vital Signs Temperature 97.6 F 10/25/17 19:00 Pulse Rate 69 10/25/17 19:00 Respiratory Rate 20 10/25/17 19:00 Blood Pressure 134/79 10/25/17 19:00 O2 Sat by Pulse Oximetry 87 L 10/25/17 19:00 Pain Scale Pain Intensity 0 - Physical Exam General Appearance: moderate distress Eye Exam: PERRL/EOMI Neck Exam: normal inspection, supple Respiratory Exam: diminished breath sounds, other (NO RALES OR RHONCHI) Cardiovascular/Chest Exam: normal heart sounds, regular rate/rhythm Abdominal/Gastrointestinal Exam: soft, normal bowel sounds, other (NONTENDER), No tenderness, No distention, No mass Extremity Exam: non-tender, normal range of motion, normal inspection, no calf tenderness, pedal edema (2+ PITTING EDEMA ANKLES TO KNEES) Peripheral Pulses Exam: carotid (R): 2+, carotid (L): 2+, femoral (R): 2+, femoral (L): 2+, dorsalis-pedis (R): 2+, dorsalis-pedis (L): 2+ Neurologic Exam: alert, oriented x 3, cooperative, 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, sensation nml, No motor deficits Skin Exam: normal color, warm, No dry SpO2 Interpretation: hypoxic SpO2: 87 Oxygen Delivery: Room Air - Course EKG Interpreted by Me: RATE, Sinus Rhythm, NORMAL AXIS (RATE OF 72, INTRAVENTRICULAR CONDUCTION DELAY) - Radiology Exams Chest X-ray Interpretation: Reviewed by me (LINGULAR /SCARRING AND CABG SURGERY) - CT Exams Chest CT Interpretation: Discussed w/radiologist (NEGATIVE FOR PULMONARY EMBOLISM, SCATTERED FIBROSIS/SCARRING, PROMINENT MEDIASTINAL AND BILATERAL LYMPH NODE , RIGHT INFRAHILAR 1.8 CM X 2.6CM , ALSO PROMINENT 2.1 X 2.7 LEFT SUPRACLAVICULAR NODE) Ordered Tests: Active Orders 24 hr Category Date Time Status Up Ad Flores ROUTINE Activity 10/25/17 22:37 Ordered Accucheck ACHS Care 10/25/17 22:37 Ordered Code Status Order ROUTINE Care 10/25/17 22:37 Ordered EKG-ER Only STAT Care 10/25/17 19:23 Active IV Care Q6H Care 10/25/17 22:37 Ordered IV Insertion STAT Care 10/25/17 19:19 Active Intake and Output 09,13,18,21 Care 10/25/17 22:37 Ordered Oxygen-ED Only NASAL CANNULA 3 lpm Care 10/25/17 19:[address] in Observation ROUTINE Care 10/25/17 22:38 Ordered Reynaldo Jero, Apply ROUTINE Care 10/25/17 22:37 Ordered Telemetry ROUTINE Care 10/25/17 22:37 Ordered Vital Signs Q4H Care 10/25/17 22:37 Ordered Weight,Daily 0600 Care 10/25/17 22:37 Ordered 1800 Calorie ADA Diet 10/25/17 Breakfast Ordered CHEST 1 VIEW (PORTABLE) Stat Exams 10/25/17 19:19 Completed CHEST WITH CONTRAST [CT] Stat Exams 10/25/17 20:19 Taken CBC W DIFF Stat Lab 10/25/17 19:40 Completed CMP Stat Lab 10/25/17 19:40 Completed MAGNESIUM Stat Lab 10/25/17 19:40 Completed NT PRO BNP Stat Lab 10/25/17 19:40 Completed PROTIME WITH INR Stat Lab 10/25/17 19:40 Completed TROPONIN Q3H Lab 10/25/17 19:40 Completed TROPONIN Q3H Lab 10/25/17 22:30 Ordered TROPONIN Q3H Lab 10/26/17 01:30 Ordered TROPONIN Q3H Lab 10/26/17 04:30 Ordered TROPONIN Q3H Lab 10/26/17 07:30 Ordered UA W/ MICROSCOPIC Stat Lab 10/25/17 20:29 Completed Oxygen NASAL CANNULA 4 lpm RT 10/25/17 22:37 Ordered Respiratory Nebulizer Q4H RT 10/25/17 22:37 Ordered Respiratory Nebulizer STAT RT 10/25/17 19:20 Completed Respiratory Nebulizer STAT RT 10/25/17 22:16 Completed Respiratory Therapy Consult ROUTINE RT 10/25/17 22:37 Ordered Transfer Order Routine Transfer 10/25/17 Ordered Medication Summary Discontinued Medications Generic Name Dose Route Start Last Admin Trade Name Freq PRN Reason Stop Dose Admin Albuterol/Ipratropium 3 ml 10/25/17 19:19 10/25/17 19:34 Duoneb 0.5-3 Mg/3 Ml Neb IH 10/25/17 19:20 3 ml STAT ONE Administration Albuterol/Ipratropium Confirm 10/25/17 19:33 Duoneb 0.5-3 Mg/3 Ml Neb Administered 10/25/17 19:34 Dose 3 ml IH .STK-MED ONE Bumetanide 1 mg 10/25/17 19:22 10/25/17 19:51 Bumex 1 Mg IV 10/25/17 19:23 1 mg STAT ONE Administration Bumetanide Confirm 10/25/17 19:50 Bumex 1 Mg Administered 10/25/17 19:51 Dose 1 mg .ROUTE .STK-MED ONE Levalbuterol HCl 1.25 mg 10/25/17 22:16 10/25/17 22:20 Xopenex 1.25 Mg/0.5 Ml Ud Nebule IH 10/25/17 22:17 1.25 mg STAT ONE Administration Levalbuterol HCl Confirm 10/25/17 22:19 Xopenex 1.25 Mg/0.5 Ml Ud Nebule Administered 10/25/17 22:20 Dose 1.25 mg IH .STK-MED ONE Sodium Chloride Confirm 10/25/17 22:19 Sodium Chloride 3 Ml Ud Nebules Administered 10/25/17 22:20 Dose 3 ml IH .STK-MED ONE Lab/Rad Data: Laboratory Result Diagrams 10/25/17 19:40 10/25/17 19:40 Laboratory Results 10/25/17 10/25/17 10/25/17 Range/Units 20:29 19:40 19:40 WBC (4.0-10.5) K/mm3 RBC (4.1-5.6) M/mm3 Hgb (12.5-18.0) gm/dl Hct (42-50) % MCV (78-100) fl MCH (26-32) pg MCHC (32-36) g/dl RDW (11.5-14.0) % Plt Count (150-450) K/mm3 MPV (6-9.5) fl Gran % (36.0-66.0) % Eos # (Auto) (0-0.5) Absolute Lymphs (auto) (1.0-4.6) Absolute Monos (auto) (0.0-1.3) Lymphocytes % (24.0-44.0) % Monocytes % (0.0-12.0) % Eosinophils % (0.00-5.0) % Basophils % (0.0-0.4) % Absolute Granulocytes (1.4-6.9) Basophils # (0-0.4) PT 12.6 (8.83-12.87) SECONDS INR 1.08 (0.8-3.0) Sodium (137-145) mmol/L Potassium (3.5-5.1) mmol/L Chloride (98-107) mmol/L Carbon Dioxide (22-30) mmol/L Anion Gap (5-15) MEQ/L BUN (9-20) mg/dL Creatinine (0.66-1.25) mg/dL Estimated GFR ML/MIN Glucose (74-106) mg/dL Calcium (8.4-10.2) mg/dL Magnesium (1.6-2.3) mg/dL Total Bilirubin (0.2-1.3) mg/dL AST (17-59) U/L ALT (0-50) U/L Alkaline Phosphatase (38-126) U/L Troponin I 0.018 (0.000-0.034) ng/mL NT-Pro-B Natriuret Pep (0-900) pg/mL Serum Total Protein (6.3-8.2) g/dL Albumin (3.5-5.0) g/dL Ur Collection Type VOID Urine Color YELLOW (YELLOW) Urine Appearance CLEAR (CLEAR) Urine pH 7.0 (5-6) Ur Specific [place] 1.010 (1.005-1.025) Urine Protein TRACE (Negative) Urine Ketones NEGATIVE (NEGATIVE) Urine Blood NEGATIVE (0-5) Luca/ul Urine Nitrite NEGATIVE (NEGATIVE) Urine Bilirubin NEGATIVE (NEGATIVE) Urine Urobilinogen NORMAL (0-1) mg/dL Ur Leukocyte Esterase NEGATIVE (NEGATIVE) Urine Microscopic RBC 0-2 (0-2) /HPF Urine Microscopic WBC 0-2 (0-5) /HPF Urine Bacteria RARE (NEGATIVE) /HPF Urine Culture Reflexed NO (NO) Urine Glucose NEGATIVE (NEGATIVE) mg/dL Specimen Received 10/25/17 2030 10/25/17 10/25/17 Range/Units 19:40 19:40 WBC 4.3 (4.0-10.5) K/mm3 RBC 3.73 L (4.1-5.6) M/mm3 Hgb 12.9 (12.5-18.0) gm/dl Hct 35.7 L (42-50) % MCV 95.7 (78-100) fl MCH 34.5 H (26-32) pg MCHC 36.1 H (32-36) g/dl RDW 13.9 (11.5-14.0) % Plt Count 78 L (150-450) K/mm3 MPV 10.1 H (6-9.5) fl Gran % 64.7 (36.0-66.0) % Eos # (Auto) 0.12 (0-0.5) Absolute Lymphs (auto) 0.85 L (1.0-4.6) Absolute Monos (auto) 0.53 (0.0-1.3) Lymphocytes % 19.7 L (24.0-44.0) % Monocytes % 12.3 H (0.0-12.0) % Eosinophils % 2.8 (0.00-5.0) % Basophils % 0.5 (0.0-0.4) % Absolute Granulocytes 2.79 (1.4-6.9) Basophils # 0.02 (0-0.4) PT (8.83-12.87) SECONDS INR (0.8-3.0) Sodium 122 L (137-145) mmol/L Potassium 3.7 (3.5-5.1) mmol/L Chloride 84 L (98-107) mmol/L Carbon Dioxide 25 (22-30) mmol/L Anion Gap 16.3 H (5-15) MEQ/L BUN 12 (9-20) mg/dL Creatinine 0.65 L (0.66-1.25) mg/dL Estimated GFR > 60.0 ML/MIN Glucose 131 H (74-106) mg/dL Calcium 9.1 (8.4-10.2) mg/dL Magnesium 1.7 (1.6-2.3) mg/dL Total Bilirubin 0.70 (0.2-1.3) mg/dL AST 23 (17-59) U/L ALT 24 (0-50) U/L Alkaline Phosphatase 61 (38-126) U/L Troponin I (0.000-0.034) ng/mL NT-Pro-B Natriuret Pep 753 (0-900) pg/mL Serum Total Protein 7.3 (6.3-8.2) g/dL Albumin 4.3 (3.5-5.0) g/dL Ur Collection Type Urine Color (YELLOW) Urine Appearance (CLEAR) Urine pH (5-6) Ur Specific [place] (1.005-1.025) Urine Protein (Negative) Urine Ketones (NEGATIVE) Urine Blood (0-5) Luca/ul Urine Nitrite (NEGATIVE) Urine Bilirubin (NEGATIVE) Urine Urobilinogen (0-1) mg/dL Ur Leukocyte Esterase (NEGATIVE) Urine Microscopic RBC (0-2) /HPF Urine Microscopic WBC (0-5) /HPF Urine Bacteria (NEGATIVE) /HPF Urine Culture Reflexed (NO) Urine Glucose (NEGATIVE) mg/dL Specimen Received - Progress Progress: improved Air Movement: good Progress Note: 10/25/17 19:28 SALINE LOCK, BUMEX 1MG IV, DUONEB AEROSOL, DIURESIS 900ML, CHEST CLEAR BS, BASILAR CRACKLES, IMPROVED AIR EXCHANGE SALINE + 10/25/17 22:26 Discussed with : Abel (DISCUSSED WITH DR HAIRSTON AT 2200 FOR OBSERVATION) - Departure Time of Disposition: 22:40 Departure Disposition: Observation Clinical Impression: ACUTE DYSPNEA, EXACERBATION COPD, Acute exacerbation of congestive heart failure Condition: Stable Critical Care Time: No Referrals: HODA HAIRSTON MD [Primary Care Provider] - Instructions: Heart Failure
[2017-10-25 19:48] LABS: BASOPHIL % 0.5 % (0.0-0.4); Basophil (Absolute #) 0.02 (0-0.4); Eosinophil % 2.8 % (0.00-5.0); Eosinophil (Absolute #) 0.12 (0-0.5); Granulocyte Absolute (ANC) 2.79 (1.4-6.9); Granulocytes % 64.7 % (36.0-66.0); Hematocrit 35.7 % (42-50); Hemoglobin 12.9 gm/dl (12.5-18.0); Lymphocyte (Absolute #) 0.85 (1.0-4.6); Lymphocytes % 19.7 % (24.0-44.0); Mean Cell Volume 95.7 fl (78-100); Mean Corpuscular Hgb Concent. 36.1 g/dl (32-36); Mean Platelet Volume 10.1 fl (6-9.5); Monocyte (Absolute #) 0.53 (0.0-1.3); Monocytes % 12.3 % (0.0-12.0); Platelet Count 78 K/mm3 (150-450); Red Blood Count 3.73 M/mm3 (4.1-5.6); Red Cell Distribution Width 13.9 % (11.5-14.0); White Blood Count 4.3 K/mm3 (4.0-10.5)
[2017-10-25] MEDS ORDERED: BUMEX 1 MG ONE (19:50)
[2017-10-25 20:00] LABS: Mean Corpuscular Hemoglobin 34.5 pg (26-32)
[2017-10-25 20:02] LABS: INR 1.08 (0.8-3.0)
[2017-10-25 20:04] LABS: ALBUMIN 4.3 g/dL (3.5-5.0); ALKALINE PHOSPHATASE 61 U/L (38-126); ANION GAP 16.3 MEQ/L (5-15); BLOOD UREA NITROGEN 12 mg/dL (9-20); CHLORIDE 84 mmol/L (98-107); Calcium 9.1 mg/dL (8.4-10.2); Carbon Dioxide 25 mmol/L (22-30); Creatinine 1 0.65 mg/dL (0.66-1.25); Glucose 131 mg/dL (74-106); Potassium 3.7 mmol/L (3.5-5.1); SGOT/AST 23 U/L (17-59); SGPT/ALT 24 U/L (0-50); SODIUM 122 mmol/L (137-145); Total Protein 7.3 g/dL (6.3-8.2)
[2017-10-25 20:12] LABS: NT PRO BNP 753 pg/mL (0-900)
--- NOTE | 2017-10-25 20:14 | XRAY ---
Indication: Short of breath. COPD. Comparison: June 04, 2017. Portable apical lordotic chest again demonstrates lingular fibrosis/scarring and CABG surgery. Remaining lungs clear. Heart is not enlarged for AP portable technique. Bony thorax intact again with mild osteopenia and degenerative changes. Impression: Stable nonacute chest with chronic features.
[2017-10-25 20:43] LABS: Appearance CLEAR (CLEAR); Bilirubin NEGATIVE (NEGATIVE); Blood NEGATIVE Ery/ul (0-5); Glucose NEGATIVE (NEGATIVE); Ketones NEGATIVE (NEGATIVE); Leukocyte Esterase NEGATIVE (NEGATIVE); Nitrite NEGATIVE (NEGATIVE); Protein,Urine Dip TRACE (Negative); Urobilinogen NORMAL mg/dL (0-1)
[2017-10-25 20:44] LABS: Bacteria RARE /HPF (NEGATIVE); RBC 0-2 /HPF (0-2); WBC 0-2 /HPF (0-5)
[2017-10-25] MEDS ORDERED: HOLD METFORMIN PRODUCTS FOR 48 HOURS MC SCH (21:30)
[2017-10-25] MEDS ORDERED: Xopenex 1.25 MG/0.5 ML UD NEBULE IH ONE ×2 (22:16→22:19)
[2017-10-25] MEDS ORDERED: Sodium Chloride 3 ML UD NEBULES IH ONE (22:19)
[2017-10-25] MEDS ORDERED: NovoLOG Insulin SQ PRN (22:37)
[2017-10-25] MEDS ORDERED: Xopenex 1.25 MG/0.5 ML UD NEBULE IH PRN (22:41)
[2017-10-25] MEDS ORDERED: DUONEB 0.5-3 MG/3 ml Neb IH SCH (23:00)
[2017-10-26] MEDS: SOMA 350 MG PO SCH ×3 (00:46→13:18)
[2017-10-26] MEDS ORDERED: XANAX 1 MG PO ONE (00:55)
[2017-10-26] MEDS ORDERED: TYLENOL 325 MG PO PRN (03:51)
[2017-10-26] MEDS: DUONEB 0.5-3 MG/3 ml Neb IH SCH ×3 (04:14→11:55)
--- NOTE | 2017-10-26 06:59 | XRAY ---
Indication: Dyspnea. Elevated d-dimer. Multiple contiguous axial images obtained through the chest using 80 cc Isovue 370 contrast and PE protocol. Comparison: None There is satisfactory opacification of the pulmonary arteries to include the lobar and segmental branches. No filling defect or pulmonary embolus. The heart is borderline enlarged with previous CABG surgery. Aorta is moderately arteriosclerotic without aneurysm/dissection. Prominent mediastinal and bilateral hilar lymph nodes, largest right infrahilar measuring 1.8 x 2.6 cm. Also prominence to 2.1 x 2.7 cm left supraclavicular node. No pathologic axillary lymphadenopathy. Examination of lung parenchyma demonstrates scattered bilateral subsegmental atelectasis/scarring. No suspicious pulmonary mass, infiltrate, or effusion. Bony thorax intact with mild degenerative changes throughout the spine and sternotomy wires. Limited upper abdomen demonstrates fatty liver, tiny perihepatic fluid, and 1.3 cm right upper pole renal cyst. Impression: 1. Negative pulmonary embolus. No acute cardiopulmonary abnormalities. 2. Prominent mediastinal, bilateral hilar, and left supraclavicular lymph nodes. Findings may be reactive but malignancy not completely excluded. 3. Incidental fatty liver, tiny perihepatic fluid, and right renal cyst. CTDI 27.51
[2017-10-26 10:00] VITALS: PULSE 74
[2017-10-26] MEDS ORDERED: Klor Con 10 MEQ PO SCH (10:00)
[2017-10-26] MEDS ORDERED: Reglan 10 MG PO SCH (10:00)
[2017-10-26] MEDS ORDERED: PITAVASTATIN CALCIUM 4 MG PO SCH (10:00)
[2017-10-26] MEDS ORDERED: ECOTRIN 81 MG PO SCH (10:00)
[2017-10-26] MEDS ORDERED: NORVASC 5 MG PO SCH (10:00)
[2017-10-26] MEDS ORDERED: Flomax 0.4 MG PO SCH (10:00)
[2017-10-26] MEDS ORDERED: Zestril 20 MG PO SCH (10:00)
[2017-10-26] MEDS ORDERED: NON-FORMULARY ITEM (Omeprazole [Omeprazole] 40 MG) PO SCH (10:00)
[2017-10-26] MEDS ORDERED: THERAGRAN MULTIVITAMIN PO SCH (10:00)
[2017-10-26] MEDS ORDERED: BUMEX 1 MG PO SCH (10:00)
[2017-10-26] MEDS ORDERED: NON-FORMULARY ITEM (Carvedilol [Coreg] 25 MG) PO SCH (10:00)
[2017-10-26] MEDS ORDERED: FISH OIL 1,000 MG CAPSULE PO SCH (10:00)
[2017-10-26] MEDS ORDERED: NON-FORMULARY ITEM (Multivitamin [Multivitamins] 1 EACH) PO SCH (10:00)
[2017-10-26] MEDS ORDERED: PLAVIX 75 MG Tablet PO SCH (10:00)
[2017-10-26] MEDS ORDERED: ALIROCUMAB 150 MG SQ SCH (10:00)
[2017-10-26] MEDS ORDERED: COREG 12.5 MG PO SCH (10:00)
[2017-10-26] MEDS ORDERED: Lasix 40 MG PO SCH (10:00)
[2017-10-26] MEDS ORDERED: XANAX 1 MG PO SCH (10:00)
[2017-10-26] MEDS ORDERED: Protonix 40MG Tablet PO SCH (10:00)
[2017-10-26] MEDS ORDERED: MEDICATION INTERVENTION PO SCH (10:15)
[2017-10-26] MEDS ORDERED: MEDICATION INTERVENTION MC SCH ×2 (10:15)
--- NOTE | 2017-10-26 10:28 | PCM.HP ---
History of Present Illness - Chief Complaint Chief Complaint: complaining of juliano rtness of breath for 1-2 days History of Present Illness: is a 62 year old male Came to the emergency room with complaining of worsening shortness of breath for last 1-2 days. Patient has a significant past medical history of congestive cardiomyopathy coronary artery disease history of ventricular arrhythmias and atrial fibrillation hypertension hyperlipidemia COPD and chronic degenerative disc disease of the lumbar spine. Patient has recently underwent cardiac workup and found to have a ejection fraction of the left ventricle is approximately 20-30%. Patient is also complaining of worsening abdominal pain bloating and shortness of breath. - Review of Systems Constitutional: Fatigue, Lethargy, No Fever, No Chills Eyes: No Symptoms Ears, Nose, & Throat: No Symptoms Respiratory: Orthopnea, Short Of Breath, Wheezing, No Cough Cardiac: Edema, Orthopnea, No Chest Pain, No Syncope Abdominal/Gastrointestinal: No Abdominal Pain, No Nausea, No Vomiting, No Diarrhea Genitourinary Symptoms: No Dysuria Musculoskeletal: No Back Pain, No Neck Pain Skin: No Rash Neurological: No Dizziness, No Focal Weakness, No Sensory Changes Psychological: No Symptoms Endocrine: No Symptoms Hematologic/Lymphatic: No Symptoms Immunological/Allergic: No Symptoms Medications & Allergies Home Medications: Home Medication List Alprazolam 0.5 mg [xanAX 0.5 MG] 1 mg PO BID 01/07/12 [History Confirmed 10/25/17] Carisoprodol 350 mg [Soma 350 mg] 350 mg PO QID 01/07/12 [History Confirmed 10/25/17] Clopidogrel Bisulfate 75 mg [PLAVIX 75 MG Tablet] 75 mg PO DAILY 01/07/12 [History Confirmed 10/25/17] Metformin HCl [Metformin HCl ER] 500 mg PO TID 01/07/12 [History Confirmed 10/25] Metoclopramide HCl 10 mg [Reglan 10 MG] 10 mg PO BID 01/07/12 [History Confirmed 10/25/17] Omeprazole 40 mg PO DAILY 01/07/12 [History Confirmed 10/25/17] Alirocumab [Praluent Pen] 150 mg SQ UD 06/04/17 [History Confirmed 10/25/17] Amlodipine Besylate 5 mg [Norvasc 5 mg] 5 mg PO DAILY 06/04/17 [History Confirmed 10/25/17] Carvedilol [Coreg] 25 mg PO DAILY 06/04/17 [History Confirmed 10/26/17] Liraglutide [Victoza 2-Maksim] 1.2 mg SQ DAILY 06/04/17 [History Confirmed 10/26/17 ] Lisinopril 40 mg PO DAILY 06/04/17 [History Confirmed 10/25/17] [place]-3 Fatty Acids/Fish Oil [Fish Oil 1,000 mg Capsule] 1,200 mg PO BID [History Confirmed 10/26/17] Furosemide 40 mg [Lasix 40 MG] 40 mg PO BID #60 06/06/17 [Rx Confirmed 07/13] Potassium Chloride 10 Meq Tab* [Klor Con 10 MEQ] 10 meq PO BID #60 tab [Rx Confirmed 10/25/17] Aspirin [[place] Aspirin] 81 mg PO DAILY 10/25/17 [History Confirmed 10/25/17 ] Bumetanide 1 mg [Bumex 1 mg] 1 mg PO DAILY 10/25/17 [History Confirmed 07/13] Pitavastatin Calcium [Livalo] 4 mg PO DAILY 10/25/17 [History Confirmed 10/25/17 ] Tamsulosin HCl 0.4 mg [Flomax 0.4 MG] 0.4 mg PO DAILY 10/25/17 [History Confirmed 10/25/17] Multivitamin [Multivitamins] 1 each PO DAILY 10/26/17 [History Confirmed ] Allergies/Adverse Reactions: Allergies Allergy/AdvReac Type Severity Reaction Status Date / Time [id number] Reductase AdvReac Verified 10/25/17 19:08 Inhibitor - Past Medical History Past Medical History: Yes Neurological History: No Pertinent History ENT History: Cataracts Cardiac History: Coronary Artery Disease, High Cholesterol, Hypertension, Myocardial Infarction ([place]) Respiratory History: CHF, COPD, Sleep Apnea Endocrine Medical History: Diabetes Type II Musculoskelatal History: Arthritis, Degenerative Disk Disease, Other GI Medical History: Diverticulosis, GERD, Hernia History: No Pertinent History Pyscho-Social History: Anxiety Male Reproductive Disorders: No Pertinent History Comment: pt states fistula in left arm is for cholesterol, had placed in [place] - Past Surgical History Past Surgical History: Yes Neuro Surgical History: No Pertinent History Cardiac History: CABG, Cardiac Catheterization, Cardiac Stent Respiratory Surgery: No Pertinent History Genitourinary Surgical Hx: No Pertinent History Musculskeletal Surgical Hx: Orthopedic Surgery Male Surgical History: No Pertinent History Other Surgical History: lower back fx, bulging disk - Social History Smoking Status: Former smoker Exposure to second hand smoke: No Alcohol: Occasionally Drug Use: none - Physical Exam Vital Signs: Vital Signs - 24 hr Temp Pulse Resp BP Pulse Ox 10/26/17 08:27 74 16 96 10/26/17 07:39 97.8 F 78 20 150/82 95 10/26/17 04:14 68 24 93 L 10/26/17 04:00 97.5 F 71 18 124/75 94 L 10/26/17 00:03 76 24 97 10/25/17 23:56 97.7 F 75 18 108/64 96 10/25/17 22:46 87 L 10/25/17 22:21 75 24 93 L 10/25/17 20:06 71 24 111/69 95 10/25/17 19:37 72 22 93 L 10/25/17 19:00 97.6 F 69 20 134/79 87 L Oxygen-Last 24 hours O2 Percentage 5 Liters = 40% O2 Percentage 5 Liters = 40% O2 Percentage 5 Liters = 40% O2 Percentage 5 Liters = 40% O2 Percentage 3 Liters = 32% General Appearance: no apparent distress, alert Neurologic Exam: alert, oriented x 3, cooperative, normal mood/affect, nml cerebellar function, nml station & gait, sensation nml, No motor deficits Eye Exam: PERRL/EOMI, eyes nml inspection Ears, Nose, Throat Exam: normal ENT inspection, TMs normal, pharynx normal, moist mucous membranes Neck Exam: normal inspection, non-tender, supple, full range of motion Respiratory Exam: respiratory distress, crackles/rales, rhonchi, wheezing Cardiovascular Exam: regular rate/rhythm, normal heart sounds, normal peripheral pulses Gastrointestinal/Abdomen Exam: soft, normal bowel sounds, No tenderness, No mass Back Exam: normal inspection, normal range of motion, No CVA tenderness, No vertebral tenderness Extremity Exam: normal inspection, normal range of motion, pelvis stable Skin Exam: normal color, warm, dry, No rash Lymphatic Exam: No adenopathy Results - Labs Lab/Micro Results: Accuchecks Date 10/26/17 Time 08:00 Accucheck Value: 150 Lab Results-Last 24 Hours 10/26/17 10/26/17 10/26/17 Range/Units 01:33 04:49 07:18 Troponin I 0.017 0.022 0.025 (0.000-0.034) ng/mL Accuchecks Date 10/26/17 Time 08:00 Accucheck Value: 150 - Other Procedures and Tests Respiratory Therapy 10/25/17 22:37 Oxygen NASAL CANNULA 4 lpm 10/25/17 23:25 BiPap/CPAP ROUTINE 10/26/17 03:00 Respiratory Nebulizer Q4H Assessment/Plan (1) Acute exacerbation of congestive heart failure Current Visit: Yes Status: Acute Qualifiers: Heart failure type: combined systolic and diastolic Qualified Code(s): I50.43 - Acute on chronic combined systolic (congestive) and diastolic ( congestive) heart failure Assessment & Plan: Will admit patient as observation. We will start him on congestive heart failure pathway. Will continue home medication. We'll observe him on telemetry. Patient condition is fair but stable. Code(s): I50.9 - HEART FAILURE, UNSPECIFIED (2) Acute diastolic CHF (congestive heart failure), NYHA class 3 Current Visit: Yes Status: Chronic Code(s): I50.31 - ACUTE DIASTOLIC ( CONGESTIVE) HEART FAILURE (3) CAD (coronary artery disease) of artery bypass graft Current Visit: No Status: Acute Qualifiers: [place] vs. transplanted heart: [place] heart Associated angina: with stable angina Qualified Code(s): I25.708 - Atherosclerosis of coronary artery bypass graft(s), unspecified, with other forms of angina pectoris Code(s): I25.810 - ATHEROSCLEROSIS OF CABG W/O ANGINA PECTORIS (4) COPD (chronic obstructive pulmonary disease) Current Visit: No Status: Chronic Qualifiers: COPD type: chronic bronchitis
[2017-10-26] MEDS ORDERED: ULTRAM 50 MG PO PRN (11:04)
[2017-10-26 12:01] VITALS: BP 127/69; O2SAT 90
[2017-10-26] MEDS ORDERED: TORAdol 30 mg Injection IM STA (12:44)
--- NOTE | 2017-10-26 12:45 | PCM.DCORD ---
- Discharge Discharge Date: 10/26/17 Disposition: Home, Self-Care Condition: Stable Prescriptions: Continue Carisoprodol 350 mg [Soma 350 mg] 350 mg PO QID Clopidogrel Bisulfate 75 mg [PLAVIX 75 MG Tablet] 75 mg PO DAILY Alprazolam 0.5 mg [xanAX 0.5 MG] 1 mg PO BID Omeprazole 40 mg PO DAILY Metoclopramide HCl 10 mg [Reglan 10 MG] 10 mg PO BID Metformin HCl [Metformin HCl ER] 500 mg PO TID Carvedilol [Coreg] 25 mg PO DAILY Amlodipine Besylate 5 mg [Norvasc 5 mg] 5 mg PO DAILY Lisinopril 40 mg PO DAILY Alirocumab [Praluent Pen] 150 mg SQ UD [place]-3 Fatty Acids/Fish Oil [Fish Oil 1,000 mg Capsule] 1,200 mg PO BID Liraglutide [Victoza 2-Maksim] 1.2 mg SQ DAILY Potassium Chloride 10 Meq Tab* [Klor Con 10 MEQ] 10 meq PO BID #60 tab Furosemide 40 mg [Lasix 40 MG] 40 mg PO BID #60 Aspirin [[place] Aspirin] 81 mg PO DAILY Tamsulosin HCl 0.4 mg [Flomax 0.4 MG] 0.4 mg PO DAILY Bumetanide 1 mg [Bumex 1 mg] 1 mg PO DAILY Pitavastatin Calcium [Livalo] 4 mg PO DAILY Multivitamin [Multivitamins] 1 each PO DAILY Follow up with: HODA HAIRSTON MD [Primary Care Provider] - 1 Week
[2017-10-28] MEDS ORDERED: Glucophage XR 500 MG PO SCH (10:00)
== END 2017-10-26 16:15 | disposition home or self-care (01) ==
LOC: ED 18:46 → MED SURG 23:22
PROVIDERS: ADMIT General Practice; ATTEND General Practice
DX: I50.43 Acute on chronic combined systolic (congestive) and diastolic (congestive) heart failure (principal); I50.31 Acute diastolic (congestive) heart failure; I25.810 Atherosclerosis of coronary artery bypass graft(s) without angina pectoris; J44.9 Chronic obstructive pulmonary disease, unspecified; I25.2 Old myocardial infarction; G47.30 Sleep apnea, unspecified; E11.9 Type 2 diabetes mellitus without complications; Z79.4 Long term (current) use of insulin; M19.90 Unspecified osteoarthritis, unspecified site; F41.9 Anxiety disorder, unspecified; K21.9 Gastro-esophageal reflux disease without esophagitis; Z87.891 Personal history of nicotine dependence; Z79.899 Other long term (current) drug therapy
CPT/HCPCS: 36000; 36415; 71045; 71260; 80053; 81000; 83036; 83735; 83880; 84484; 85025; 85610; 93005; 93268; 94150; 94640; 94760; 96374; 99285; J1885; A9270-GY; G0378